=== PATIENT | female | born 2000 ===

== ENCOUNTER 2022-09-05 19:59 | Emergency (ER) | payer BC, SELFPAY ==
--- NOTE | 2022-09-05 20:25 | PC.NURSE ---
called x 2 15 min apart, no answer
[2022-09-05 20:26] VITALS: BP 120/83; PULSE 119; RESP 15; TEMP 37.8; O2SAT 100; BMI 27.8
--- NOTE | 2022-09-05 20:29 | DI.RAD.S_ITS ---
PROCEDURE: XR CHEST 1V INDICATIONS: suspected sepsis TECHNIQUE: One view of the chest was acquired. COMPARISON: None. FINDINGS: Surgical changes and devices: None. Lungs and pleura: Lungs are clear considering moderate reduced inspiratory volume. No pleural effusions or pneumothorax. Mediastinum: Mediastinal contours appear normal. Heart size is normal. Bones and chest wall: No suspicious bony lesions. Overlying soft tissues appear unremarkable. IMPRESSION: Reduced inspiratory volume, no pneumonia found when this is taken into account. Dictated by: Luke Thomas M.D. on 09/05/2022 at 20:59 Approved by: Luke Thomas M.D. on 09/05/2022 at 20:59
[2022-09-05] MEDS: SODIUM CHLORIDE 0.9% 1,000 ML 1000 ML IV (20:40)
[2022-09-05] MEDS: ONDANSETRON 4 MG/2 ML INJ IV (20:40)
[2022-09-05 21:30] LABS: Bacteria Urine Occasional (0-1); Culture Indicated Urine Cult Not Indicated; RBC Urine 1-5/HPF (0-5/HPF); Squamous Epithelial Cell Urine 1-5 /HPF (0-5/HPF); Transitional Epi Cells Urine 0-1/HPF (0-5/HPF); WBC Urine 1-5/HPF (0-5/HPF)
[2022-09-05 21:43] LABS: Add Manual Diff / Slide Review NO; Basophils Absolute Auto 0 /uL (0-100); Basophils Percent Auto 0.3 % (0-2); Eosinophils Absolute Auto 100 /uL (0-450); Eosinophils Percent Auto 1.6 % (2-4); Hematocrit 38.9 % (36-46); Hemoglobin 13.1 g/dL (12.0-16.0); Lymphocytes Absolute Auto 800 /uL (1100-4500); Lymphocytes Percent Auto 10.7 % (25-40); Mean Corpuscular HGB Conc 33.7 % (30-36); Mean Corpuscular Hemoglobin 31.2 PG (26-34); Mean Corpuscular Volume 92.5 fL (80-100); Monocytes Absolute Auto 800 /uL (0-900); Monocytes Percent Auto 11.4 % (3-14); Neutrophils Absolute Auto 5500 /uL (1500-7000); Platelet Count 215 X10^3/uL (150-400); Red Blood Cell Count 4.21 X10^6/uL (4.0-5.2); White Blood Cell Count 7.2 X10^3/uL (4.5-11.0)
[2022-09-05 21:47] LABS: INR 1.2 (0.9-1.3); Prothrombin Time 13.5 SECONDS (10.1-12.7)
[2022-09-05 21:50] LABS: PTT Partial Thromboplastin Tim 31 SECONDS (26-36)
[2022-09-05 21:52] LABS: Alanine Aminotransferase 20 IU/L (<35); Albumin Globulin Ratio 1.3 (1.0-2.8); Alkaline Phosphatase 74 U/L (38-126); Aspartate Aminotransferase 23 IU/L (14-36); BUN Creatinine Ratio 8.2 (6-22); Bilirubin Total 0.5 mg/dL (0.2-1.3); Blood Urea Nitrogen 4 mg/dL (7-17); Calcium 7.4 mg/dL (8.4-10.2); Carbon Dioxide 22 mmol/L (22-32); Chloride 104 mmol/L (98-107); Estimated Glomerular Filt Rate > 60 mL/min (>60); Globulin 3.1 g/dL (1.7-4.1); Glucose 94 mg/dL (70-100); HEMOLYSIS < 15 (0-50); Lipase 50 U/L (23-300); Potassium 3.5 mmol/L (3.4-5.1); Sodium 137 mmol/L (137-145); Total Protein 7.1 g/dL (6.3-8.2)
[2022-09-05 21:53] LABS: Lactate (Lactic Acid) 1.3 mmol/L (0.7-2.1)
[2022-09-05 22:09] LABS: Procalcitonin 0.16 ng/mL (<0.5)
[2022-09-05 23:32] LABS: Influenza A - CEPHEID Flu A NEGATIVE (NEGATIVE); Influenza B - CEPHEID Flu B NEGATIVE (NEGATIVE); Respiratory Syncytial Virus Negative (Negative)
[2022-09-05 23:37] LABS: COVID-19 CEPHEID 4-PLEX PCR Negative (Negative)
--- NOTE | 2022-09-05 23:54 | ED.GENADULT ---
HPI - General Adult General Chief complaint: Abdominal Pain Stated complaint: ABD pain, Fever 103, Can't eat/drink Time Seen by Provider: 09/05/22 23:54 Source: patient Mode of arrival: Ambulatory History of Present Illness HPI narrative: Otherwise healthy 22-year-old with 48 hours of abdominal pain. She noticed headache starting yesterday followed by upper abdominal pain progressing to the point that she did have some emesis but does not notice any blood in the emesis. The headache has continued to wax and wane without any meningismus or other neurologic symptoms. The abdominal pain has worsened in seems to be localizing in the mid epigastrium to the right upper quadrant. She developed a temperature to 103 this evening and presents to the emergency department for further evaluation. She has had a single episode of diarrhea. Does not report significant cough or palpitations. Related Data Allergies Allergy/AdvReac Type Severity Reaction Status Date / Time No Known Drug Allergies Allergy Verified 09/05/22 20:26 Review of Systems Review of Systems Narrative: Remainder of complete review of systems is otherwise unremarkable except for that included in the HPI. Patient History Social History Smoking Status: Unknown if ever smoked Smoking Status: Unknown if ever smoked alcohol intake frequency: holidays/special occasions only Substance Use Type: does not use Exam Initial Vital Signs Initial Vital Signs: Vital Signs Temperature 100.1 F H 09/05/22 20:26 Pulse Rate 119 H 09/05/22 20:26 Respiratory Rate 15 09/05/22 20:26 Blood Pressure 120/83 09/05/22 20:26 Pulse Oximetry 100 09/05/22 20:26 Oxygen Delivery Method 09/05/22 20:26 General: Healthy appearing, in no acute distress. Able to give a complete and coherent history. Well-nourished well-developed HEENT: Moist mucous membranes, normal sclera with reactive pupils, Neck: supple Respiratory: Lungs are clear to auscultation, no wheezing no rales no rhonchi. Full and symmetrical air movement Cardiac: Regular rate and rhythm no murmurs no bruits Abdomen: Soft, tender in the epigastrium and right upper quadrant without rebound or guarding,, good bowel tones, no flank pain Skin: Warm and dry, no rashes Neurologic: Grossly neurologically intact with no obvious asymmetries or abnormalities Extremities: No trauma, well perfused Psych: Cooperative, appropriate insight and affect Course Orders Ordered: ED Orders 09/05/22 20:29 XR chest 1V Stat EKG-12 Lead Stat RT Consult Eval and Treat NOW 09/05/22 20:30 Urine Microscopic Stat 09/05/22 21:37 Blood Culture Stat Complete Blood Count AUTO DIFF Stat Comprehensive Metabolic Panel Stat Lactate (Lactic Acid) Stat Lipase Stat Partial Thromboplastin Time Stat Procalcitonin Stat Prothrombin Time INR Stat 09/05/22 22:50 Covid-19 + FLU A/B + RSV - PCR Stat Ondansetron HCl (Ondansetron 4 Mg/2 Ml Inj) 4 mg IV NOW PRN PRN Reason: Nausea And Vomiting Last Admin: 09/05/22 20:40 Dose: 4 mg Documented By: BRISEYDA Discontinued Medications Sodium Chloride (Normal Saline 0.9%) 1,000 mls @ 1,000 mls/hr IV BOLUS ONE Stop: 09/05/22 21:28 Last Admin: 09/05/22 20:40 Dose: 1,000 mls/hr Documented By: BRISEYDA Vital Signs Vital signs: Vital Signs - 8 hr 09/05/22 20:26 Temperature 100.1 F H Pulse Rate 119 H Respiratory Rate 15 Blood Pressure 120/83 Pulse Oximetry 100 Oxygen Delivery Method Room Air Medical Decision Making Lab Data Result diagrams: 09/05/22 21:37 09/05/22 21:37 Labs: Lab Results 09/05/22 09/05/22 09/05/22 Range/Units 20:30 21:37 21:37 WBC 7.2 (4.5-11.0) X10^3/uL RBC 4.21 (4.0-5.2) X10^6/uL Hgb 13.1 (12.0-16.0) g/dL Hct 38.9 (36-46) % MCV 92.5 (80-100) fL MCH 31.2 (26-34) PG MCHC 33.7 (30-36) % RDW 13.0 (11.6-14.8) % Plt Count 215 (150-400) X10^3/uL Neut % (Auto) 76.0 H (50-75) % Lymph % (Auto) 10.7 L (25-40) % [place] % (Auto) 11.4 (3-14) % Eos % (Auto) 1.6 L (2-4) % Baso % (Auto) 0.3 (0-2) % Neut # (Auto) 5500 (0820-4449) /uL Lymph # (Auto) 800 L (7508-8362) /uL [place] # (Auto) 800 (0-900) /uL Eos # (Auto) 100 (0-450) /uL Baso # (Auto) 0 (0-100) /uL PT 13.5 H (10.1-12.7) SECONDS INR 1.2 (0.9-1.3) APTT 31 (26-36) SECONDS Sodium (137-145) mmol/L Potassium (3.4-5.1) mmol/L Chloride (98-107) mmol/L Carbon Dioxide (22-32) mmol/L BUN (7-17) mg/dL Creatinine (0.52-1.04) mg/dL Estimated GFR (>60) mL/min BUN/Creatinine Ratio (6-22) Glucose (70-100) mg/dL Lactate (0.7-2.1) mmol/L Calcium (8.4-10.2) mg/dL Total Bilirubin (0.2-1.3) mg/dL AST (14-36) IU/L ALT (<35) IU/L Alkaline Phosphatase (38-126) U/L Total Protein (6.3-8.2) g/dL Albumin (3.5-5.0) g/dL Globulin (1.7-4.1) g/dL Albumin/Globulin Ratio (1.0-2.8) Lipase (23-300) U/L Procalcitonin (<0.5) ng/mL Urine RBC 1-5/hpf (0-5/HPF) Urine WBC 1-5/hpf (0-5/HPF) Ur Squamous Epith Cells 1-5 /hpf (0-5/HPF) Ur Transition Epith Cell 0-1/hpf (0-5/HPF) Urine Bacteria Occasional (0-1) (None) Ur Culture Indicated? Cult not indicated SARS-CoV-2 (PCR) (Negative) Influenza A (RT-PCR) (NEGATIVE) Influenza B (RT-PCR) (NEGATIVE) RSV (PCR) (Negative) 09/05/22 09/05/22 09/05/22 Range/Units 21:37 21:37 22:50 WBC (4.5-11.0) X10^3/uL RBC (4.0-5.2) X10^6/uL Hgb (12.0-16.0) g/dL Hct (36-46) % MCV (80-100) fL MCH (26-34) PG MCHC (30-36) % RDW (11.6-14.8) % Plt Count (150-400) X10^3/uL Neut % (Auto) (50-75) % Lymph % (Auto) (25-40) % [place] % (Auto) (3-14) % Eos % (Auto) (2-4) % Baso % (Auto) (0-2) % Neut # (Auto) (1814-8500) /uL Lymph # (Auto) (1904-1409) /uL [place] # (Auto) (0-900) /uL Eos # (Auto) (0-450) /uL Baso # (Auto) (0-100) /uL PT (10.1-12.7) SECONDS INR (0.9-1.3) APTT (26-36) SECONDS Sodium 137 (137-145) mmol/L Potassium 3.5 (3.4-5.1) mmol/L Chloride 104 (98-107) mmol/L Carbon Dioxide 22 (22-32) mmol/L BUN 4 L (7-17) mg/dL Creatinine 0.49 L (0.52-1.04) mg/dL Estimated GFR > 60 (>60) mL/min BUN/Creatinine Ratio 8.2 (6-22) Glucose 94 (70-100) mg/dL Lactate 1.3 (0.7-2.1) mmol/L Calcium 7.4 L (8.4-10.2) mg/dL Total Bilirubin 0.5 (0.2-1.3) mg/dL AST 23 (14-36) IU/L ALT 20 (<35) IU/L Alkaline Phosphatase 74 (38-126) U/L Total Protein 7.1 (6.3-8.2) g/dL Albumin 4.0 (3.5-5.0) g/dL Globulin 3.1 (1.7-4.1) g/dL Albumin/Globulin Ratio 1.3 (1.0-2.8) Lipase 50 (23-300) U/L Procalcitonin 0.16 (<0.5) ng/mL Urine RBC (0-5/HPF) Urine WBC (0-5/HPF) Ur Squamous Epith Cells (0-5/HPF) Ur Transition Epith Cell (0-5/HPF) Urine Bacteria (None) Ur Culture Indicated? SARS-CoV-2 (PCR) Negative (Negative) Influenza A (RT-PCR) Flu a negative (NEGATIVE) Influenza B (RT-PCR) Flu b negative (NEGATIVE) RSV (PCR) Negative (Negative) Urine Dip Bedside Urine Glucose Negative Bedside Urine Bilirubin - Negative Bedside Urine Ketone - Negative Urine Specific [place] 1.010 Bedside Urine Occult Blood ++ Bedside Urine pH 6.5 Bedside Urine Protein - Negative Bedside Urine Urobilinogen - Negative Bedside Urine Nitrite - Negative Bedside Urine Leukocytes - Negative Esterase Point of care testing: Urine Dip Bedside Urine Glucose Negative Bedside Urine Bilirubin - Negative Bedside Urine Ketone - Negative Urine Specific [place] 1.010 Bedside Urine Occult Blood ++ Bedside Urine pH 6.5 Bedside Urine Protein - Negative Bedside Urine Urobilinogen - Negative Bedside Urine Nitrite - Negative Bedside Urine Leukocytes - Negative Esterase Imaging Data Chest x-ray: Radiologist's Impression: FINDINGS:? ? Surgical changes and devices:? None.? ? Lungs and pleura:? Lungs are clear considering moderate reduced inspiratory volume.? No pleural effusions or pneumothorax.? ? Mediastinum:? Mediastinal contours appear normal.? Heart size is normal.? ? Bones and chest wall:? No suspicious bony lesions.? Overlying soft tissues appear unremarkable.? ? IMPRESSION:? Reduced inspiratory volume, no pneumonia found when this is taken into account. ? ? Dictated by: Luke Thomas M.D. on 09/05/2022 at 20:59 ? ? MDM Narrative Medical decision making narrative: 22-year-old woman with 48 hours of worsening upper abdominal pain now developing fever, tachycardia. Labs are unremarkable with no sign of sepsis, elevated liver enzymes, influenza, COVID, respiratory syncytial virus. We discussed options and chose to proceed with CT scan of the abdomen given the severity of the pain and the fever. 1236am pt states that she is feeling better after fluids, she is tired and would like to go home. She signed out AMA Discharge Plan Departure Patient Disposition: Left Against Medical Advice Clinical Impression: Abdominal pain Stand Alone Forms: Against Medical Advice
== END 2022-09-06 00:35 | disposition left against medical advice (07) ==
PROVIDERS: Emergency Provider Emergency Medicine
DX: R10.10 Upper abdominal pain, unspecified (principal); R11.10 Vomiting, unspecified; R50.9 Fever, unspecified; R00.0 Tachycardia, unspecified; Z20.822 Contact with and (suspected) exposure to COVID-19
CPT/HCPCS: 0241U; 36415; 71045; 80053; 81003; 81015; 83605; 83690; 84145; 85025; 85610; 85730; 87040; 96361; 96374; 99284; J2405